=== PATIENT | male | born 1995 | race Two or more races ===

== ENCOUNTER 2024-05-02 09:19 | Emergency (ER) | payer MEDICAID, OTHER ==
[~2024-05-02] VITALS: Ht 165.1 cm; Wt 86.2 kg
[2024-05-02] MEDS ORDERED: LORAZEPAM INJ 2 MG/ML VIAL ONE (09:52)
[2024-05-02] MEDS: LORAZEPAM INJ 2 MG/ML VIAL IV ONE (10:02)
[2024-05-02] MEDS: IV NS 0.9% 500 ML BAG IV ONE (10:03)
[2024-05-02 10:51] LABS: BASOPHILS % (AUTO) 0.4 % (0.0-2.0); EOSINOPHILS # (AUTO) 0.1 K/uL (0.0-0.7); EOSINOPHILS % (AUTO) 0.7 % (0.0-6.0); HEMATOCRIT 47 % (39-51); HEMOGLOBIN 16.3 g/dL (13.5-17.5); LYMPHOCYTES # (AUTO) 1.6 K/uL (0.8-4.8); LYMPHOCYTES % (AUTO) 19.3 % (20.0-44.0); MEAN CORPUSCULAR HEMOGLOBIN 30 PG (26.0-33.0); MEAN CORPUSCULAR HGB CONC 35 g/dl (31.0-36.0); MEAN CORPUSCULAR VOLUME 86 fL (80-96); MONOCYTES # (AUTO) 0.4 K/uL (0.1-1.30); MONOCYTES % (AUTO) 5.3 % (2.0-12.0); NEUTROPHILS # (AUTO) 6.1 K/uL (1.8-8.9); NEUTROPHILS % (AUTO) 74.3 % (43.0-81.0); PLATELET COUNT (AUTO) 296 K/uL (150-450); RED BLOOD CELL COUNT(AUTO) 5.44 MIL/uL (4.5-6.0); RED CELL DISTRIBUTION WIDTH 12.6 % (11.5-15.0); WHITE BLOOD COUNT (AUTO) 8.2 K/uL (4.3-11.0)
[2024-05-02 10:53] LABS: CALCIUM, SERUM 9.9 mg/dL (8.5-10.1); CREATININE 1.2 mg/dL (0.6-1.3); POTASSIUM 3.4 mmol/L (3.5-5.1)
[2024-05-02] MEDS: KETOROLAC TROMETHAMINE 15 MG/ML VIAL IV ONE (11:04)
[2024-05-02] MEDS ORDERED: KETOROLAC TROMETHAMINE 15 MG/ML VIAL ONE (11:05)
[2024-05-02 11:25] VITALS: BP 110/78; TEMP 98.2; O2SAT 96
== END 2024-05-02 11:26 | disposition home or self-care (01) ==
LOC: ER 09:19
DX: F41.1 Generalized anxiety disorder (principal); R00.2 Palpitations; R07.89 Other chest pain; R11.2 Nausea with vomiting, unspecified
CPT/HCPCS: 99285; 96374; 71045; 96375; 93005; 85025; 80048; 36415; J2060; J7040; J1885

== ENCOUNTER 2024-07-03 07:32 | Emergency (ER) | payer MEDICAID, OTHER ==
[~2024-07-03] VITALS: Ht 167.6 cm; Wt 86.2 kg
[2024-07-03] MEDS ORDERED: OLANZAPINE ZYDIS 5 MG TAB.RAPDIS ONE (08:23)
[2024-07-03] MEDS: OLANZAPINE ZYDIS 5 MG TAB.RAPDIS PO ONE (08:24)
[2024-07-03] MEDS ORDERED: ONDANSETRON 4 MG TAB.RAPDIS ONE (09:04)
[2024-07-03] MEDS: ONDANSETRON 4 MG TAB.RAPDIS SL ONE (09:05)
[2024-07-03] MEDS ORDERED: diphenhydrAMINE HCL 50 MG/ML VIAL ONE (09:17)
[2024-07-03] MEDS: diphenhydrAMINE HCL 50 MG/ML VIAL IM ONE (09:20)
[2024-07-03] MEDS ORDERED: ONDA4TAB5 PO (09:32)
[2024-07-03 09:56] VITALS: BP 150/100; TEMP 97.8; O2SAT 100
== END 2024-07-03 09:58 | disposition home or self-care (01) ==
LOC: ER 07:37
DX: F41.9 Anxiety disorder, unspecified (principal); F17.200 Nicotine dependence, unspecified, uncomplicated; R06.02 Shortness of breath
CPT/HCPCS: 99283; 96372; 93005 ×2; J1200; Q0162